=== PATIENT | female | born 1960 | race African-American/Black ===

== ENCOUNTER 2016-08-22 11:06 | Outpatient (CLI) | payer MEDICARE ==
[2016-08-22] MEDS ORDERED: UNOBMED (16:02)
--- NOTE | 2016-08-22 16:07 | GI Initial Consult Note ---
History of Present Illness General Date patient seen: Aug 22, 2016 Time patient seen: 10:00 Referring physician: OVIDIO Reason for Consultation: SCREENING COLONOSCOPY Present Illness HPI Pleasant 56 year old female patient referred by Dr. Sapp for routine colonoscopy screening. Patient presents today with no endoscopic history, c/o of constipation with prn relief from OTC stool softeners. In addition she states she has abdominal bloating and painful BMs at times which she contributes to her hemorrhoids. She states she is unsure which antibiotic she is allergic to, but breaks out in hives when she is administered. Denies any weight loss. The patient states all her records are at [facility]. Home Meds Reported Medications Unable to Obtain Medications (UNABLE TO OBTAIN MEDS) 1 Ea Ea 08/22/16 Med list reviewed/reconciled: Yes Allergies: Coded Allergies: CODEINE (Verified Allergy, Unknown, Rash, 09/14/14) SEVERE CONSTIPATION Uncoded Allergies: ANTIBIOTICS (Allergy, Unknown, YEAST INFECTION(SKIN VAG), 10/22/14) SUGAR (Allergy, Unknown, Rash, 09/14/14) SEVERE CONSTIPATION Patient History History Provided By: Patient PMH Narrative Asthma Heart disease Obesity Hypotension PSHx BLE vein surgery Family History Narrative Aunties - Lupus, GB syndrome Social History: Reports: smoking - quit for 7 years Review of Systems All Other Systems: negative except mentioned in HPI Physical Exam T 98.2 BP 127/70 P 70 99 RA HT 5'3 WT 239.5 lbs Sp02 EP Interpretation: reviewed General Appearance: well appearing, no apparent distress, obese Head: normocephalic EENT: normal ENT inspection Neck: full range of motion Respiratory: normal breath sounds, no respiratory distress Cardiovascular: normal rate Gastrointestinal: normal inspection, non tender, soft, normal bowel sounds Rectal: deferred Genitourinary: no CVA tenderness Musculoskeletal: normal inspection Neurologic: normal inspection, alert, oriented x3, responsive Psychiatric: normal inspection, judgement/insight normal, memory normal Skin: normal inspection, normal color, no rash, warm/dry Lymphatic: normal inspection, no adenopathy GI: Plan Problems: (1) Asthma (2) Colonoscopy planned (3) Heart disease (4) Obesity (5) Hypotension Plan Colonoscopy scheduled 09/08/16. - Eliquis must be stopped 2 days prior procedure date. obtain medication list from Dr. Sapp's office or [facility] obtain Abx allergy information trial rx Amitiza Seen with . Thank you for referring this patient. Constanza Marcelino N.P. Aug 22, 2016 16:07
== END 2016-08-22 11:45 | disposition home or self-care (01) ==
LOC: PAN 11:06
DX: K59.00 Constipation, unspecified (principal); J45.909 Unspecified asthma, uncomplicated; I51.9 Heart disease, unspecified; E66.9 Obesity, unspecified; I95.9 Hypotension, unspecified; Z88.6 Allergy status to analgesic agent; Z88.8 Allergy status to other drugs, medicaments and biological substances; F17.200 Nicotine dependence, unspecified, uncomplicated
CPT/HCPCS: 99201

== ENCOUNTER → 2016-09-08 | Day surgery (SDC) | payer MEDICARE ==
[~2016-09-08] VITALS: Ht 160 cm; Wt 103.9 kg
[~2016-09-08] MED LIST: ALLOPURINOL300 M1 ORAL; CLONAZEPAM0.25 MG PO; COLCHICINE0.6 M1 PO; ELIQUIS5 MG PO; FUROSEMIDE80 M1 ORAL; Lidocaine 1% Plain 30 ml INJ ONE; PHILLIPS' LAXA100 MG PO; POTASSIUM CHLO10 ME3 ORAL; Propofol 10mg/ml 20ml IV ONE; SPIRONOLACTONE100 MG ORAL; TENORMIN25 MG ORAL; TRAMADOL HCL50 MG ORAL; UNOBMED; VITAMIN C500 M5 PO; XIIDRA1 EACH OP
[2016-09-08 10:16] VITALS: BP 130/79
--- NOTE | 2016-09-08 10:45 | Pre-Procedure Note/Attestation ---
Pre-Procedure Note/Attestation Complete Prior to Procedure Planned Procedure: not applicable Procedure Narrative: colonoscopy Indications for Procedure Pre-Operative Diagnosis: screening Attestation I attest that I discussed the nature of the procedure; its benefits; risks and complications; and alternatives (and the risks and benefits of such alternatives ), prior to the procedure, with the patient (or the patient's legal compliance representative). I attest that, if there was a reasonable possibility of needing a blood transfusion, the patient (or the patient's legal compliance representative) was given the [facility] standardized written summary, pursuant to the [place] Blood Safety Act ([place] Health and Safety Code # 1645, as amended). I attest that I re-evaluated the patient just prior to the surgery and that there has been no change in the patient's H&P, except as documented below: DEE MORRIS Sep 08, 2016 10:45
--- NOTE | 2016-09-08 10:46 | Short Stay Surgery H&P ---
History of Present Illness History of Present Illness Chief Complaint screening see recent consult note HPI Melody Lanier is a 56 year old female who was admitted on for Colon Screening Patient History Allergies: Coded Allergies: POLLEN EXTRACTS (Verified Allergy, Mild, 09/07/16) runny nose CODEINE (Verified Allergy, Unknown, Rash, 09/14/14) SEVERE CONSTIPATION Uncoded Allergies: ANTIBIOTICS (Allergy, Unknown, YEAST INFECTION(SKIN VAG), 10/22/14) SUGAR (Allergy, Unknown, Rash, 09/14/14) SEVERE CONSTIPATION PAST MEDICAL HISTORY: Past Surgeries: Social History: Medication History Scheduled Allopurinol* (Allopurinol*), 300 MG ORAL DAILY, (Reported) Apixaban (Eliquis), 5 MG PO BID, (Reported) Ascorbic Acid (Vitamin C), 500 MG PO DAILY, (Reported) Atenolol (Tenormin), 50 MG ORAL DAILY, (Reported) Clonazepam (Clonazepam), 0.25 MG PO BID, (Reported) Docusate Sodium (Mccarty' Laxative), 100 MG PO NEEDED, (Reported) Furosemide* (Lasix*), 80 MG ORAL DAILY, (Reported) Lifitegrast (Xiidra), 1 EACH OP BID, (Reported) Potassium Chloride (Potassium Chloride), 10 MEQ ORAL BID, (Reported) Spironolactone* (Spironolactone*), 25 MG ORAL DAILY, (Reported) Scheduled PRN Tramadol Hcl* (Ultram*), 50 MG ORAL Q6H PRN for For Pain, (Reported) Miscellaneous Medications Colchicine (Colchicine), 0.6 MG PO, (Reported) Physical Exam Vital Signs Last Vital Signs Date Time Temp Pulse Resp B/P Pulse Ox O2 Delivery O2 Flow Rate FiO2 09/08/16 10:16 98.1 61 18 130/79 98 Room Air Plan Attestation Are the patient's medical conditions optimized for surgery? DEE MORRIS Sep 08, 2016 10:46
--- NOTE | 2016-09-08 14:47 | Anethesia Preoperative Eval ---
Anesthesia Pre-op PMH/ROS General Date of Evaluation: Sep 08, 2016 Time of Evaluation: 14:20 Anesthesiologist: aleyda ASA Score: ASA 3 Mallampati Score Class I : Soft palate, uvula, fauces, pillars visible Class II: Soft palate, uvula, fauces visible Class III: Soft palate, base of uvula visible Class IV: Only hard plate visible Mallampati Classification: Class II Surgeon: meli Diagnosis: screening Surgical Procedure: [id number] Anesthesia History: none Allergies: Coded Allergies: POLLEN EXTRACTS (Verified Allergy, Mild, 09/07/16) runny nose CODEINE (Verified Allergy, Unknown, Rash, 09/14/14) SEVERE CONSTIPATION Uncoded Allergies: ANTIBIOTICS (Allergy, Unknown, YEAST INFECTION(SKIN VAG), 10/22/14) SUGAR (Allergy, Unknown, Rash, 09/14/14) SEVERE CONSTIPATION Past Medical History Cardiovascular: Reports: HTN, arrhythmia - A. Fib. valvular disease Pulmonary: Reports: asthma Neurologic/Psychiatric: Reports: other - seizures Anesthesia Pre-op Phys. Exam Physician Exam Last Vital Signs Date Time Temp Pulse Resp B/P Pulse Ox O2 Delivery O2 Flow Rate FiO2 09/08/16 10:16 98.1 61 18 130/79 98 Room Air Airway Exam Mallampati Score: Class II Teeth: missing Anesthesia Pre-op A/P Risk Assessment & Plan Plan: propofol Status Change Before Surgery: Omar Sagastume MD Sep 08, 2016 14:47
--- NOTE | 2016-09-08 14:48 | Immediate Post-Op Evaluation ---
Immediate Post-Op Evalulation Immediate Post-Op Evalulation Date of Evaluation: Sep 08, 2016 Time of Evaluation: 15:20 IV Fluids: 500 Blood Pressure Systolic: 117 Blood Pressure Diastolic: 60 Pulse Rate: 62 Respiratory Rate: 16 O2 Sat by Pulse Oximetry: 100 Temperature (Fahrenheit): 98.3 Pain Score (1-10): 0 Nausea: No Vomiting: No Complications none Patient Status: awake, patent, none Hydration Status: adequate Omar Lizama MD Sep 08, 2016 14:48
--- NOTE | 2016-09-08 14:49 | 48 Hour Post Anesthesia Eval ---
Post Anesthesia Evaluation Date of Evaluation: Sep 08, 2016 Airway: patent Nausea: No Vomiting: No Pain Intensity: 0 Hydration Status: adequate Cardiopulmonary Status: stable Mental Status/LOC: patient returned to baseline Follow-up Care/Observations: n/a Post-Anesthesia Complications: tolerated well Follow-up care needed: ready to discharge Omar Lizama MD Sep 08, 2016 14:49
--- NOTE | 2016-09-08 15:04 | Endoscopy Procedure Note ---
Endoscopy Procedure Note Indication for Procedure: screening Procedures Performed: colonoscopy Operative Findings/Diagnosis: 8 polyps Specimen: yes Pt Tolerated Procedure Well: Yes Estimated Blood Loss: none Anesthesiologist: aleyda Anesthesia: MAC Implant(s) used?: No 50 yrs or older w/o bx or poly: Not Applicable 10yrs. F/U not recommended: Not Applicable DEE MORRIS Sep 08, 2016 15:04
[2016-09-08 15:13] VITALS: BP 119/73
[2016-09-08 15:18] VITALS: BP 136/69
[2016-09-08 15:23] VITALS: BP 136/69
[2016-09-08 15:45] VITALS: BP 124/70
[2016-09-08 16:05] VITALS: BP 131/73
--- NOTE | 2016-09-08 17:30 | Procedure Note ---
DATE OF PROCEDURE: 09/08/2016 SURGEON: Anthony Bush M.D. PROCEDURE: Colonoscopy with biopsy and snare polypectomy. ANESTHESIA: Per Dr. Lizama. INSTRUMENT: Olympus adult flexible colonoscope. INDICATION: Screening colonoscopy evaluation. REASON FOR PROCEDURE: The procedure, risks, benefits, and possible consequences, including hemorrhage, aspiration, perforation and infection, and alternative treatments, were explained to the patient/legal guardian by Dr. Anthony Bush and the patient/legal guardian understood and accepted these risks. PROCEDURE IN DETAIL: After informed consent was obtained and and the patient was adequately sedated, first rectal exam was performed, which was normal. Then, the scope was advanced from rectum to the cecum, documented by appendiceal orifice, ileocecal valve, and right upper quadrant palpation. Quality of prep was good. The patient had total of 8 polyps removed during this colonoscopic examination. Large polyp was in the sigmoid colon, roughly measured about 1.5 cm, removed with hot snare polypectomy technique. There was one polyp right sitting in the ileocecal valve area. This was a sessile polyp, measured roughly about 1 cm removed with a hot snare polypectomy technique. There was another polyp in the ascending colon, also measured roughly about 1 cm removed with hot snare polypectomy technique. The patient had one diminutive polyp in the transverse colon removed with cold biopsy forceps technique. There were three more polyps in the sigmoid colon, all removed with cold snare polypectomy technique and biopsy forceps. Retroflexion of rectum showed evidence of large internal hemorrhoids. The patient tolerated the procedure without any complications. SUMMARY OF FINDINGS: Total of 8 polyps removed, see above for details. RECOMMENDATIONS: Follow up biopsies results and treat accordingly. We will recommend at least repeat colonoscopy in three years depending on the pathology. I want to thank, Dr. Ulysses Sapp, for this kind referral. Anthony Bush M.D. DR: GAGE JOB#: [id number] CC: Ulysses Sapp M.D.; Fax#: [phone]
--- NOTE | 2016-09-11 20:23 | Cardiology Report ---
APPROVED REPORT EKG Measurement Heart [id number] Sinus rhythm with 1st degree AV block Possible Anterior infarct, age undetermined Abnormal ECG
== END | disposition home or self-care (01) ==
LOC: GAS 08:39
DX: Z12.11 Encounter for screening for malignant neoplasm of colon (principal); D12.5 Benign neoplasm of sigmoid colon; D12.0 Benign neoplasm of cecum; D12.2 Benign neoplasm of ascending colon; D12.3 Benign neoplasm of transverse colon; K64.8 Other hemorrhoids; I10 Essential (primary) hypertension; J45.909 Unspecified asthma, uncomplicated; I48.91 Unspecified atrial fibrillation; R56.9 Unspecified convulsions
CPT/HCPCS: 45380; 45385; 93005; J2001; J2704; 94003; 94150